=== PATIENT | female | born 1975 | race Caucasian/White ===

== ENCOUNTER 2021-03-21 19:13 | Emergency (ER) | payer MEDICARE ==
--- NOTE | 2021-03-21 19:43 | ERPHSYRPT ---
- History of Present Illness Time Seen by Provider: 03/21/21 19:42 Historian: patient Exam Limitations: no limitations Physician History: This is a 46-year-old morbidly obese white female who has known chronic recurrent pancreatitis and enlarged liver with associated elevated liver enzymes who presents with 1 month history of generalized abdominal pain and distention. She underwent a liver ultrasound on 03/06/2021 which showed hepatomegaly with no ascites and no masses. The remainder of the liver ultrasound was negative. Patient sees a rayon coner, Dr. Calderón, out of [facility]. However, she is scheduled to see a new rayon coner in [place] on 04/10/2021. What brought the patient into the emergency room today was worsening right flank and right lower quadrant abdominal pain. She has had no vomiting and no diarrhea. Patient does have [place] pain medicine at home but did not take any. She states she also has associated dysuria. Timing/Duration: yesterday Quality: burning (Burning with urination), sharpness (Right flank) Abdominal Pain Onset Location: RLQ, flank (Right) Pain Radiation: RLQ, flank (Flank) Severity of Pain-Max: moderate Severity of Pain-Current: moderate Modifying Factors: Improves With: nothing Previous symptoms: no prior history Allergies/Adverse Reactions: lamotrigine [From Lamictal] Allergy (Verified 03/21/21 19:29) Sulfa (Sulfonamide Antibiotics) Allergy (Verified 03/21/21 19:29) sulfamethoxazole [From Bactrim] Allergy (Verified 03/21/21 19:29) trimethoprim [From Bactrim] Allergy (Verified 03/21/21 19:29) Travel Risk - International Travel Have you traveled outside of the country in past 3 weeks: No - Coronavirus Screening Are you exhibiting any of the following symptoms?: No Close contact with a COVID-19 positive Pt in past 14-21 Days: No - Review of Systems Constitutional: No Symptoms Eyes: No Symptoms Ears, Nose, & Throat: No Symptoms Respiratory: No Symptoms Cardiac: No Symptoms Abdominal/Gastrointestinal: Abdominal Pain (Right lower quadrant) Genitourinary Symptoms: Dysuria, Flank Pain (Right) Musculoskeletal: No Symptoms Skin: No Symptoms Neurological: No Symptoms Psychological: No Symptoms Endocrine: No Symptoms Hematologic/Lymphatic: No Symptoms Immunological/Allergic: No Symptoms All Other Systems: Reviewed and Negative - Past Medical History Pertinent Past Medical History: Yes - Past Surgical History Past Surgical History: Yes - Nursing Vital Signs Nursing Vital Signs: Initial Vital Signs Temperature 98.5 F 03/21/21 19:31 Pulse Rate 94 H 03/21/21 19:31 Respiratory Rate 22 03/21/21 19:31 Blood Pressure 141/85 03/21/21 19:31 O2 Sat by Pulse Oximetry 98 03/21/21 19:31 Pain Scale Pain Intensity 6 - Physical Exam General Appearance: mild distress, alert, anxiety, obese Eye Exam: PERRL/EOMI, eyes nml inspection Ears, Nose, Throat Exam: normal ENT inspection, moist mucous membranes Neck Exam: normal inspection, non-tender, supple, full range of motion Respiratory Exam: normal breath sounds, lungs clear, airway intact, No chest tenderness, No respiratory distress Cardiovascular Exam: regular rate/rhythm, normal heart sounds, normal peripheral pulses Gastrointestinal/Abdomen Exam: soft, normal bowel sounds, tenderness (Localized right lower quadrant), guarding (Right lower quadrant to palpation) Pelvic Exam: not done Rectal Exam: not done Back Exam: normal inspection, normal range of motion, CVA tenderness (Right side), No vertebral tenderness Extremity Exam: normal inspection, normal range of motion, pelvis stable Neurologic Exam: alert, oriented x 3, cooperative, apparel designer II-XII nml as tested, normal mood/affect, nml cerebellar function, nml station & gait, sensation nml Skin Exam: normal color, warm, dry Lymphatic Exam: No adenopathy SpO2 Interpretation: normal O2 Delivery: Room Air - Course Nursing assessment & vital signs reviewed: Yes Ordered Tests: Active Orders 24 hr Category Date Time Status IV Insertion STAT Care 03/21/21 19:46 Active ABDOMEN AND PELVIS W/0 CONTRAS [CT] Stat Exams 03/21/21 19:47 Taken AMYLASE Stat Lab 03/21/21 19:52 Completed CBC W DIFF Stat Lab 03/21/21 19:52 Completed CMP Stat Lab 03/21/21 19:52 Completed CULTURE,URINE Stat Lab 03/21/21 19:52 Received LIPASE Stat Lab 03/21/21 19:52 Completed Lactic Acid Stat Lab 03/21/21 19:46 Completed UA W/RFX UR CULTURE Stat Lab 03/21/21 19:52 Completed Medication Summary Discontinued Medications Generic Name Dose Route Start Last Admin Trade Name Freq PRN Reason Stop Dose Admin Hydromorphone HCl 1 mg 03/21/21 19:46 03/21/21 19:57 Hydromorphone 1 Mg/Ml Injection IV 03/21/21 19:47 1 mg STAT ONE Administration Hydromorphone HCl Confirm 03/21/21 19:54 Hydromorphone 1 Mg/Ml Injection Administered 03/21/21 19:55 Dose 1 mg .ROUTE .STK-MED ONE Sodium Chloride 1,000 mls @ 999 mls/hr 03/21/21 19:46 03/21/21 21:13 Sodium Chloride 0.9% 1000 Ml IV 03/21/21 20:46 Infused .Q1H1M STA Infusion Sodium Chloride Confirm 03/21/21 19:54 Sodium Chloride 0.9% 1000 Ml Administered 03/21/21 19:55 Dose 1,000 mls @ ud .ROUTE .STK-MED ONE Ceftriaxone Sodium/Dextrose 1 g in 50 mls @ 100 mls/hr 03/21/21 20:50 03/21/21 20:53 Rocephin 1 Gm-D5w 50 Ml Bag IV 03/21/21 21:19 100 mls/hr STAT STA 100 mls/hr Administration Ceftriaxone Sodium/Dextrose Confirm 03/21/21 20:52 Rocephin 1 Gm-D5w 50 Ml Bag Administered 03/21/21 20:53 Dose 1 g in 50 mls @ ud IV .STK-MED ONE Ketorolac Tromethamine 30 mg 03/21/21 19:46 03/21/21 19:56 Toradol 30 Mg Injection IV 03/21/21 19:47 30 mg STAT ONE Administration Ketorolac Tromethamine Confirm 03/21/21 19:54 Toradol 30 Mg Injection Administered 03/21/21 19:55 Dose 30 mg .ROUTE .STK-MED ONE Ondansetron HCl 4 mg 03/21/21 19:46 03/21/21 19:56 Zofran 4 Mg/2 Ml Vial IV 03/21/21 19:47 4 mg STAT ONE Administration Ondansetron HCl Confirm 03/21/21 19:54 Zofran 4 Mg/2 Ml Vial Administered 03/21/21 19:55 Dose 4 mg .ROUTE .STK-MED ONE Lab/Rad Data: Laboratory Result Diagrams 03/21/21 19:52 03/21/21 19:52 Laboratory Results 03/21/21 03/21/21 03/21/21 Range/Units 19:52 19:52 19:52 WBC 10.8 H (4.0-10.5) K/mm3 RBC 4.39 (4.1-5.4) M/mm3 Hgb 13.1 (12.0-16.0) gm/dl Hct 40.8 (35-47) % MCV 92.9 (78-100) fl MCH 29.8 (26-32) pg MCHC 32.1 (32-36) g/dl RDW 13.0 (11.5-14.0) % Plt Count 276 (150-450) K/mm3 MPV 9.5 (7.5-11.0) fl Gran % 62.3 (36.0-66.0) % Eos # (Auto) 0.12 (0-0.5) Absolute Lymphs (auto) 2.76 (1.0-4.6) Absolute Monos (auto) 1.18 (0.0-1.3) Lymphocytes % 25.6 (24.0-44.0) % Monocytes % 11.0 (0.0-12.0) % Eosinophils % 1.1 (0.00-5.0) % Basophils % 0.0 (0.0-0.4) % Absolute Granulocytes 6.71 (1.4-6.9) Basophils # 0 (0-0.4) Sodium 139 (137-145) mmol/L Potassium 4.0 (3.5-5.1) mmol/L Chloride 105 (98-107) mmol/L Carbon Dioxide 24 (22-30) mmol/L Anion Gap 13.8 (5-15) MEQ/L BUN 12 (7-17) mg/dL Creatinine 0.53 (0.52-1.04) mg/dL Estimated GFR > 60.0 ML/MIN Glucose 104 (74-106) mg/dL Lactic Acid (0.4-2.0) Calcium 9.6 (8.4-10.2) mg/dL Total Bilirubin < 0.10 L (0.2-1.3) mg/dL AST 20 (14-36) U/L ALT 15 (0-35) U/L Alkaline Phosphatase 55 (38-126) U/L Serum Total Protein 7.4 (6.3-8.2) g/dL Albumin 4.1 (3.5-5.0) g/dL Amylase 78 (30-110) U/L Lipase 77 (23-300) U/L Urine Color YELLOW (YELLOW) Urine Appearance CLOUDY (CLEAR) Urine pH 8.0 (5-6) Ur Specific [place] 1.014 (1.005-1.025) Urine Protein 100 (Negative) Urine Ketones NEGATIVE (NEGATIVE) Urine Blood SMALL (0-5) Pol[place]/ul Urine Nitrite NEGATIVE (NEGATIVE) Urine Bilirubin NEGATIVE (NEGATIVE) Urine Urobilinogen NEGATIVE (0-1) mg/dL Ur Leukocyte Esterase TRACE (NEGATIVE) Urine WBC (Auto) 26-50 (0-5) /HPF Urine RBC (Auto) 26-50 (0-2) /HPF U Epithel Cells (Auto) RARE (FEW) /HPF Urine Bacteria (Auto) FEW (NEGATIVE) /HPF Urine Mucus (Auto) SLIGHT (NEGATIVE) /HPF Urine Culture Reflexed YES (NO) Urine Glucose NEGATIVE (NEGATIVE) mg/dL 03/21/21 Range/Units 19:46 WBC (4.0-10.5) K/mm3 RBC (4.1-5.4) M/mm3 Hgb (12.0-16.0) gm/dl Hct (35-47) % MCV (78-100) fl MCH (26-32) pg MCHC (32-36) g/dl RDW (11.5-14.0) % Plt Count (150-450) K/mm3 MPV (7.5-11.0) fl Gran % (36.0-66.0) % Eos # (Auto) (0-0.5) Absolute Lymphs (auto) (1.0-4.6) Absolute Monos (auto) (0.0-1.3) Lymphocytes % (24.0-44.0) % Monocytes % (0.0-12.0) % Eosinophils % (0.00-5.0) % Basophils % (0.0-0.4) % Absolute Granulocytes (1.4-6.9) Basophils # (0-0.4) Sodium (137-145) mmol/L Potassium (3.5-5.1) mmol/L Chloride (98-107) mmol/L Carbon Dioxide (22-30) mmol/L Anion Gap (5-15) MEQ/L BUN (7-17) mg/dL Creatinine (0.52-1.04) mg/dL Estimated GFR ML/MIN Glucose (74-106) mg/dL Lactic Acid 0.7 (0.4-2.0) Calcium (8.4-10.2) mg/dL Total Bilirubin (0.2-1.3) mg/dL AST (14-36) U/L ALT (0-35) U/L Alkaline Phosphatase (38-126) U/L Serum Total Protein (6.3-8.2) g/dL Albumin (3.5-5.0) g/dL Amylase (30-110) U/L Lipase (23-300) U/L Urine Color (YELLOW) Urine Appearance (CLEAR) Urine pH (5-6) Ur Specific [place] (1.005-1.025) Urine Protein (Negative) Urine Ketones (NEGATIVE) Urine Blood (0-5) Polo/ul Urine Nitrite (NEGATIVE) Urine Bilirubin (NEGATIVE) Urine Urobilinogen (0-1) mg/dL Ur Leukocyte Esterase (NEGATIVE) Urine WBC (Auto) (0-5) /HPF Urine RBC (Auto) (0-2) /HPF U Epithel Cells (Auto) (FEW) /HPF Urine Bacteria (Auto) (NEGATIVE) /HPF Urine Mucus (Auto) (NEGATIVE) /HPF Urine Culture Reflexed (NO) Urine Glucose (NEGATIVE) mg/dL - Progress Progress: improved, pain not gone completely, re-examined Progress Note: 03/21/21 21:20 CAT scan of the abdomen pelvis shows no acute intra-abdominal or intrapelvic abnormality. Counseled pt/family regarding: lab results, diagnosis, need for follow-up, rad results - Departure Departure Disposition: Home Clinical Impression: UTI (urinary tract infection) Condition: Stable Critical Care Time: No Referrals: CORINNE LEAHY [Primary Care Provider] - Additional Instructions: Drink plenty of fluids take your medication as prescribed. Follow-up with your primary care physician for further management. Prescriptions: Ciprofloxacin [Cipro 500 MG] 500 mg PO BID #14 tablet
[2021-03-21] MEDS ORDERED: Sodium Chloride 0.9% 1000 ML 1,000 ML IV STA (19:46)
[2021-03-21] MEDS ORDERED: TORAdol 30 mg Injection IV ONE (19:46)
[2021-03-21] MEDS ORDERED: Zofran 4 MG/2 ML VIAL IV ONE (19:46)
[2021-03-21] MEDS ORDERED: Hydromorphone 1 mg/ml Injection IV ONE (19:46)
[2021-03-21] MEDS ORDERED: Sodium Chloride 0.9% 1000 ML 1,000 ML ONE (19:54)
[2021-03-21] MEDS ORDERED: Hydromorphone 1 mg/ml Injection ONE (19:54)
[2021-03-21] MEDS ORDERED: TORAdol 30 mg Injection ONE (19:54)
[2021-03-21] MEDS ORDERED: Zofran 4 MG/2 ML VIAL ONE (19:54)
[2021-03-21 20:11] LABS: Absolute Neutrophil Ct (ANC) 6.71 (1.4-6.9); Basophil (Absolute #) 0 (0-0.4); Eosinophil % 1.1 % (0.00-5.0); Eosinophil (Absolute #) 0.12 (0-0.5); Hematocrit 40.8 % (35-47); Hemoglobin 13.1 gm/dl (12.0-16.0); Lymphocyte (Absolute #) 2.76 (1.0-4.6); Lymphocytes % 25.6 % (24.0-44.0); Mean Cell Volume 92.9 fl (78-100); Mean Corpuscular Hemoglobin 29.8 pg (26-32); Mean Corpuscular Hgb Concent. 32.1 g/dl (32-36); Mean Platelet Volume 9.5 fl (7.5-11.0); Monocyte (Absolute #) 1.18 (0.0-1.3); Neutrophil % 62.3 % (36.0-66.0); Platelet Count 276 K/mm3 (150-450); Red Blood Count 4.39 M/mm3 (4.1-5.4); White Blood Count 10.8 K/mm3 (4.0-10.5)
[2021-03-21 20:21] LABS: ALBUMIN 4.1 g/dL (3.5-5.0); ALKALINE PHOSPHATASE 55 U/L (38-126); AMYLASE 78 U/L (30-110); ANION GAP 13.8 MEQ/L (5-15); Appearance CLOUDY (CLEAR); BILIRUBIN,TOTAL < 0.10 mg/dL (0.2-1.3); BLOOD UREA NITROGEN 12 mg/dL (7-17); Bacteria FEW /HPF (NEGATIVE); Bilirubin NEGATIVE (NEGATIVE); Blood SMALL Ery/ul (0-5); CHLORIDE 105 mmol/L (98-107); Calcium 9.6 mg/dL (8.4-10.2); Carbon Dioxide 24 mmol/L (22-30); Creatinine 1 0.53 mg/dL (0.52-1.04); EST GLOMERULAR FILTRATION RATE > 60.0 ML/MIN; Epithelial Cells RARE /HPF (FEW); Glucose 104 mg/dL (74-106); Glucose NEGATIVE (NEGATIVE); Ketones NEGATIVE (NEGATIVE); LIPASE 77 U/L (23-300); Leukocyte Esterase TRACE (NEGATIVE); Mucus SLIGHT /HPF (NEGATIVE); Nitrite NEGATIVE (NEGATIVE); Protein,Urine Dip 100 (Negative); RBC 26-50 /HPF (0-2); SGOT/AST 20 U/L (14-36); SGPT/ALT 15 U/L (0-35); SODIUM 139 mmol/L (137-145); Specific Gravity 1.014 (1.005-1.025); Total Protein 7.4 g/dL (6.3-8.2); Urobilinogen NEGATIVE mg/dL (0-1); WBC 26-50 /HPF (0-5)
[2021-03-21] MEDS ORDERED: ROCEPHIN 1 Gm-D5w 50 ml Bag** 1 G/50 ML IVPB IV STA (20:50)
[2021-03-21] MEDS ORDERED: ROCEPHIN 1 Gm-D5w 50 ml Bag** 1 G/50 ML IVPB IV ONE (20:52)
[2021-03-21 21:22] VITALS: BP 120/74; PULSE 80; O2SAT 96
--- NOTE | 2021-03-22 07:50 | XRAY ---
Indication: Right flank and low back pain 2 days. Chronic pancreatitis. Multiple contiguous axial images obtained through the abdomen and pelvis without contrast. Comparison: None Lung bases are clear. Heart not enlarged. Noncontrasted stomach and bowel loops appear nonobstructed. Normal appendix. Mild scattered colonic fecal debris throughout. Previous cholecystectomy and hysterectomy. No free fluid/air. Mild fatty hepatomegaly measuring 22.5 cm. Remaining liver, pancreas, spleen, adrenal glands, kidneys, ureters, and bladder are unremarkable for noncontrast exam. Mild scattered aortoiliac calcifications without AAA. Osseous structures intact. No ventral or inguinal hernias. Impression: 1. Mild fecal stasis and fatty hepatomegaly. 2. Remaining CT abdomen/pelvis without contrast exam is negative. Comment: Preliminary interpretation made by [facility]. No critical discrepancy.
== END 2021-03-21 21:30 | disposition home or self-care (01) ==
LOC: ED 19:13
DX: N39.0 Urinary tract infection, site not specified (principal)
CPT/HCPCS: 36000; 36415; 74176; 80053; 81001; 82150; 83605; 83690; 85025; 87077; 87086; 87186; 96374; 96375; 99284; J0696; J1170; J1885; J2405

== ENCOUNTER 2022-03-01 20:27 | Emergency (ER) | payer MEDICARE ==
--- NOTE | 2022-03-01 21:03 | ERPHSYRPT ---
- History of Present Illness Time Seen by Provider: 03/01/22 20:35 Source: patient Exam Limitations: no limitations Patient Subjective Stated Complaint: pt arrived in er stating that she has a pain in left foot that along bottom of foot , states she has a knot in her foot and rates pain at 7/10, denies hurting foot, but states she was walking a lot today. Pt noticed a sore lump on bottom of foot on outer aspect of her arch. Triage Nursing Assessment: pt is alert and oriented, limping while walking, favoring left side. Physician History: Patient is a 46-year-old female presents to our ED for evaluation of left foot pain. Patient observed the pain today. Pain is at the plantar aspect closer to the forefoot. Patient feels a palpable nodule that she says is particularly tender. No trauma. No fever. Pain worse upon weightbearing. Pain improved with rest. Patient denies a history of the same. Patient is diabetic. Pain rated 7 out of 10 however patient declined pain medication. Pain only occurs upon weightbearing. Pain improves with rest. Patient voices no other complaints or concerns at this time. Portions of this note were created with voice recognition technology. There may be grammatical, spelling, punctuation or sound alike errors Method of Injury: unknown Occurred: just prior to arrival Quality: throbbing Severity of Pain-Max: moderate Severity of Pain-Current: mild Lower Extremities Pain: foot: left Modifying Factors: Improves With: other (Weightbearing) Associated Symptoms: none Allergies/Adverse Reactions: lamotrigine [From Lamictal] Allergy (Verified 03/01/22 20:43) Sulfa (Sulfonamide Antibiotics) Allergy (Verified 03/01/22 20:43) sulfamethoxazole [From Bactrim] Allergy (Verified 03/01/22 20:43) trimethoprim [From Bactrim] Allergy (Verified 03/01/22 20:43) Hx Tetanus, Diphtheria Vaccination/Date Given: Yes Hx Influenza Vaccination/Date Given: Yes Hx Pneumococcal Vaccination/Date Given: Yes Travel Risk - International Travel Have you traveled outside of the country in past 3 weeks: No - Coronavirus Screening Are you exhibiting any of the following symptoms?: No Close contact with a COVID-19 positive Pt in past 14-21 Days: No - Vaccine Status Have you recieved a Covid-19 vaccination: Yes [employer] 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 - Vaccination Dates Date of 2cond Vaccination (if applicable): 11/21/20 - Review of Systems Constitutional: No Symptoms, No Fever, No Chills Eyes: No Symptoms Ears, Nose, & Throat: No Symptoms Respiratory: No Symptoms, No Cough, No Dyspnea Cardiac: No Symptoms, No Chest Pain, No Edema, No Syncope Abdominal/Gastrointestinal: No Symptoms, No Abdominal Pain, No Nausea, No Vomiting, No Diarrhea Genitourinary Symptoms: No Symptoms, No Dysuria Musculoskeletal: No Symptoms, No Back Pain, No Neck Pain Skin: No Symptoms, No Rash Neurological: No Symptoms, No Dizziness, No Focal Weakness, No Sensory Changes Psychological: No Symptoms Endocrine: No Symptoms Hematologic/Lymphatic: No Symptoms Immunological/Allergic: No Symptoms All Other Systems: Reviewed and Negative - Past Medical History Pertinent Past Medical History: Yes Neurological History: No Pertinent History ENT History: Cataracts Cardiac History: No Pertinent History Respiratory History: COPD Endocrine Medical History: Diabetes Type II Musculoskeletal History: No Pertinent History GI Medical History: Crohns Disease, Pancreatitis History: No Pertinent History Psycho-Social History: Bipolar Female Reproductive Disorders: No Pertinent History Other Medical History: enlarge liver - Past Surgical History Past Surgical History: Yes Neuro Surgical History: No Pertinent History Cardiac: No Pertinent History Respiratory: No Pertinent History Gastrointestinal: Cholecystectomy, Other Genitourinary: No Pertinent History Musculoskeletal: No Pertinent History Female Surgical History: Hysterectomy, Dilation & Curettage, Section - Social History Smoking Status: Current every day smoker Exposure to second hand smoke: Yes Drug Use: none Patient Lives Alone: No - Female History Hx Last Menstrual Period: hysterectomy in 2019 Hx Now: No - Nursing Vital Signs Nursing Vital Signs: Initial Vital Signs Temperature 97.5 F 03/01/22 20:29 Pulse Rate 102 H 03/01/22 20:29 Respiratory Rate 18 03/01/22 20:29 Blood Pressure 137/83 03/01/22 20:29 O2 Sat by Pulse Oximetry 100 03/01/22 20:29 Pain Scale Pain Intensity 7 - Physical Exam General Appearance: no apparent distress, alert Eyes, Ears, Nose, Throat Exam: normal ENT inspection, TMs normal, pharynx normal, moist mucous membranes Neck Exam: normal inspection, non-tender, supple, full range of motion Cardiovascular/Respiratory Exam: chest non-tender, normal breath sounds, regular rate/rhythm, no respiratory distress Gastrointestinal/Abdominal Exam: non-tender, guarding Back Exam: normal inspection, No vertebral tenderness Hips Exam: bilateral: non-tender, normal inspection, normal range of motion, no evidence of injury Legs Exam: bilateral leg: non-tender, normal inspection, normal range of motion, no evidence of injury Knees Exam: bilateral knee: non-tender, normal inspection, normal range of motion, no evidence of injury Ankle Exam: bilateral ankle: non-tender, normal inspection, normal range of motion, no evidence of injury Foot Exam: right foot: non-tender, normal inspection, normal range of motion, no evidence of injury, left foot: soft tissue tenderness (Tenderness to palpation at the dorsal plantar aspect of the left forefoot. There is a palpable nodule that is particularly tender. No swelling), bilateral foot: other (Bilateral lower extremities are neurovascular tact distally. Compartments are soft. Cap refill less than 2 seconds. Homans' sign negative. PT DP pulse palpable.) Neuro/Tendon Exam: normal sensation, normal motor functions Mental Status Exam: alert, oriented x 3, cooperative Skin Exam: normal color, warm, dry SpO2 Interpretation: normal SpO2: 100 O2 Delivery: Room Air - Course Nursing assessment & vital signs reviewed: Yes - Radiology Exams Foot X-ray Interpretation: Interpreted by me (No fractures dislocations. No soft tissue abnormalities. Mild degenerative changes. Pes planus) Ordered Tests: Active Orders 24 hr Category Date Time Status FOOT (MINIMUM 3 VIEWS) Stat Exams 03/01/22 20:53 Taken - Progress Progress: improved Progress Note: Patient reassessed. She is comfortable. Patient declined pain medication. Patient only experiences pain upon weightbearing. Patient given bilateral axillary crutches. A referral to orthopedic clinic was provided. Patient agrees to follow-up orthopedic clinic tomorrow. She voices no other complaints or concerns at this time. Portions of this note were created with voice recognition technology. There may be grammatical, spelling, punctuation or sound alike errors 03/01/22 21:00 Counseled pt/family regarding: diagnosis, need for follow-up, rad results - Departure Departure Disposition: Observation Clinical Impression: Plantar fasciitis of left foot, Foot pain, left Condition: Stable Critical Care Time: No Referrals: CORINNE LEAHY NP [Primary Care Provider] - Follow up/PCP as directed Additional Instructions: Discharge/Care Plan JILL HILL was seen on 03/01/22 in the Emergency Room. The patient was counseled regarding Diagnosis,Lab results, Imaging studies, need for follow up and when to return to the Emergency Room. Prescriptions given: Discharge Note I have spoken with the patient and/or caregivers. I have explained the patient's condition, diagnosis and treatment plan based on the information available to me at this time. I have answered the patient's and/or caregiver's questions and addressed any concerns. The patient and/or caregivers have as good understanding of the patient's diagnosis, condition and treatment plan as can be expected at this point. The vital signs have been stable. The patient's condition is stable and appropriate for discharge from the emergency department. The patient will pursue further outpatient evaluation with the primary care physician or other designated or consulting physician as outlined in the discharge instructions. The patient and/or caregivers are agreeable to this plan of care and follow-up instructions have been explained in detail. The patient and/or caregivers have received these instruction. The patient/and or caregivers are aware that any significant change in condition or worsening of symptoms should prompt an immediate return to this or the closest emergency department or call 911. Outpatient Orders: Ortho Referral Time Frame: 1 Day, Facility: [facility], Location: [facility]
[2022-03-01 21:34] VITALS: BP 137/74; PULSE 83; O2SAT 98
--- NOTE | 2022-03-02 08:44 | XRAY ---
Indication: Pain. No known injury. Comparison: None 3 nonweightbearing views left foot demonstrates mild 1st tarsometatarsal degenerative changes and tiny spurring posterior calcaneus/distal anterior tibia. No other bony, articular, or soft tissue abnormalities.
== END 2022-03-01 21:40 | disposition home or self-care (01) ==
LOC: ED 20:27
DX: M72.2 Plantar fascial fibromatosis (principal); M79.672 Pain in left foot; E11.9 Type 2 diabetes mellitus without complications; J44.9 Chronic obstructive pulmonary disease, unspecified; Z72.0 Tobacco use
CPT/HCPCS: 73630; 99282

== ENCOUNTER 2022-09-12 17:57 | Emergency (ER) | payer MEDICARE ==
--- NOTE | 2022-09-12 18:20 | ERPHSYRPT ---
- History of Present Illness Source: patient Exam Limitations: no limitations Patient Subjective Stated Complaint: PT HERE FOR SOB FOR ABOUT A WEEK NOW WITH A COUGH, NO FEVER, SHE STATES THAT SHE HAS ALSO HAS HAD SWELLING TO HANDS AND FEET AND HAVING SOME RIGHT SIDED ABD PAIN, HER DR PLACED HER OF FLAGYL Triage Nursing Assessment: PT ALERT, RESP EASY, WALKED IN, FACE MASK IN PLACE, CHEST CLEAR, NO SWELLING NOTED, ABD SOFT. SKIN W/D/P Timing/Duration: day(s) Severity: mild Associated Symptoms: abdominal pain, cough Hx Tetanus, Diphtheria Vaccination/Date Given: Yes Hx Influenza Vaccination/Date Given: Yes Hx Pneumococcal Vaccination/Date Given: Yes Immunizations Up to Date: Yes <CHUYITA MOSELEY - Last Filed: 09/12/22 18:46> <MILO LAMBERT - Last Filed: 09/12/22 21:00> - History of Present Illness Time Seen by Provider: 09/12/22 18:17 Physician History: Patient is 47-year-old female with significant past medical history of hepatomegaly started having a cough some shortness of breath and abdominal distention for 1 to 2 days. Patient has a history of chronic pancreatitis and for which patient has seen her privacy attorney who started her on Flagyl and was referred to [facility] for further work-up. In the emergency room she states that she has a COPD and that is why she has some cough she denies any fever chills nausea or vomiting. She is complaining of abdominal distention as well as some weight gain in the last few days. (PRADIPCHUYITA) Allergies/Adverse Reactions: lamotrigine [From Lamictal] Allergy (Verified 03/01/22 20:43) Sulfa (Sulfonamide Antibiotics) Allergy (Verified 03/01/22 20:43) sulfamethoxazole [From Bactrim] Allergy (Verified 03/01/22 20:43) trimethoprim [From Bactrim] Allergy (Verified 03/01/22 20:43) Travel Risk - International Travel Have you traveled outside of the country in past 3 weeks: No - Coronavirus Screening Are you exhibiting any of the following symptoms?: Yes Symptoms: Cough: New Onset, Shortness of Breath - Vaccine Status Have you recieved a Covid-19 vaccination: Yes [employer] Director: Moderna - Vaccination Dates Date of 2cond Vaccination (if applicable): 11/21/20 <PRADIP - Last Filed: 09/12/22 18:46> - Review of Systems Constitutional: No Fever, No Chills Eyes: No Symptoms Ears, Nose, & Throat: No Symptoms Respiratory: Cough, No Dyspnea Cardiac: No Chest Pain, No Edema, No Syncope Abdominal/Gastrointestinal: No Abdominal Pain, No Nausea, No Vomiting, No Diarrhea Genitourinary Symptoms: No Dysuria Musculoskeletal: No Back Pain, No Neck Pain Skin: No Rash Neurological: No Dizziness, No Focal Weakness, No Sensory Changes Psychological: No Symptoms Endocrine: No Symptoms All Other Systems: Reviewed and Negative <PRDAIP, - Filed: 09/12/22 18:46> - Past Medical History Pertinent Past Medical History: Yes Neurological History: No Pertinent History ENT History: Cataracts Cardiac History: No Pertinent History Respiratory History: COPD Endocrine Medical History: Diabetes Type II Musculoskeletal History: No Pertinent History GI Medical History: Crohns Disease, Pancreatitis History: No Pertinent History Psycho-Social History: Bipolar Female Reproductive Disorders: No Pertinent History Other Medical History: enlarge liver - Past Surgical History Past Surgical History: Yes Neuro Surgical History: No Pertinent History Cardiac: No Pertinent History Respiratory: No Pertinent History Gastrointestinal: Cholecystectomy, Other Genitourinary: No Pertinent History Musculoskeletal: No Pertinent History Female Surgical History: Hysterectomy, Dilation & Curettage, Section - Social History Smoking Status: Current every day smoker Exposure to second hand smoke: Yes Drug Use: none Patient Lives Alone: Yes - Female History Hx Last Menstrual Period: 15 YEARS AGO Hx Now: No <PRADIP - Last Filed: 09/12/22 18:46> - Physical Exam General Appearance: mild distress, alert Eye Exam: PERRL/EOMI, eyes nml inspection Ears, Nose, Throat Exam: normal ENT inspection, TMs normal, pharynx normal, m oist mucous membranes Neck Exam: normal inspection, non-tender, supple, full range of motion Respiratory Exam: diminished breath sounds, No respiratory distress Cardiovascular Exam: regular rate/rhythm, normal heart sounds, normal peripheral pulses Gastrointestinal/Abdomen Exam: soft, normal bowel sounds, distention, No tenderness, No mass Back Exam: normal inspection, normal range of motion, No CVA tenderness, No vertebral tenderness Extremity Exam: normal inspection, normal range of motion, pelvis stable Neurologic Exam: alert, oriented x 3, cooperative, normal mood/affect, nml cerebellar function, nml station & gait, sensation nml, No motor deficits Skin Exam: normal color, warm, dry, No rash Lymphatic Exam: No adenopathy SpO2: 97 <PRADIP - Last Filed: 09/12/22 18:46> - Nursing Vital Signs Nursing Vital Signs: Initial Vital Signs Temperature 97.4 F 09/12/22 18:14 Pulse Rate 97 H 09/12/22 18:14 Respiratory Rate 18 09/12/22 18:14 Blood Pressure 114/98 09/12/22 18:14 O2 Sat by Pulse Oximetry 98 09/12/22 18:14 Pain Scale Pain Intensity 6 - Course Nursing assessment & vital signs reviewed: Yes EKG Interpreted by Me: Sinus Rhythm - Radiology Exams Chest X-ray Interpretation: Reviewed by me <PRADIP - Last Filed: 09/12/22 18:46> Ordered Tests: Active Orders 24 hr Category Date Time Status EKG-ER Only STAT Care 09/12/22 19:23 Active ABDOMEN AND PELVIS W CONTRAST [CT] Stat Exams 09/12/22 19:22 Taken CHEST 2 VIEWS (PA AND LAT) Stat Exams 09/12/22 18:31 Taken CHEST WITH CONTRAST [CT] Stat Exams 09/12/22 19:22 Taken AMYLASE Stat Lab 09/12/22 18:26 Completed CBC W DIFF Stat Lab 09/12/22 18:26 Completed CMP Stat Lab 09/12/22 18:26 Completed LIPASE Stat Lab 09/12/22 18:26 Completed TROPONIN Q4H Lab 09/12/22 19:00 Completed TROPONIN Q4H Lab 09/12/22 23:30 Ordered Medication Summary Discontinued Medications Generic Name Dose Route Start Last Admin Trade Name Freq PRN Reason Stop Dose Admin Apixaban 10 mg 09/12/22 20:40 Apixaban 2.5 Mg Tablet PO 09/12/22 20:41 ONCE STA Lab/Rad Data: Laboratory Result Diagrams 09/12/22 18:26 09/12/22 18:26 Laboratory Results 09/12/22 09/12/22 09/12/22 Range/Units 19:00 18:26 18:26 WBC 7.4 (4.0-10.5) x10^3/uL RBC 4.49 (4.1-5.4) x10^6/uL Hgb 13.5 (12.0-16.0) g/dL Hct 40.9 (35-47) % MCV 91.1 (78-100) fL MCH 30.1 (26-32) pg MCHC 33.0 (32-36) g/dL RDW 12.8 (11.5-14.0) % Plt Count 290 (150-450) x10^3/uL MPV 9.8 (7.5-11.0) fL Gran % 49.3 (36.0-66.0) % Immature Gran % (Auto) 0.9 H (0.00-0.4) % Nucleat RBC Rel Count 0.0 (0.00-0.1) % Eos # (Auto) 0.12 (0-0.5) x10^3/uL Immature Gran # (Auto) 0.07 H (0.00-0.03) x10^3u/L Absolute Lymphs (auto) 2.74 (1.0-4.6) x10^3/uL Absolute Monos (auto) 0.81 (0.0-1.3) x10^3/uL Absolute Nucleated RBC 0.00 (0.00-0.01) x10^3u/L Lymphocytes % 37.1 (24.0-44.0) % Monocytes % 11.0 (0.0-12.0) % Eosinophils % 1.6 (0.00-5.0) % Basophils % 0.1 (0.0-0.4) % Absolute Granulocytes 3.64 (1.4-6.9) x10^3/uL Basophils # 0.01 (0-0.4) x10^3/uL Sodium 137 (137-145) mmol/L Potassium 4.2 (3.5-5.1) mmol/L Chloride 106 (98-107) mmol/L Carbon Dioxide 26 (22-30) mmol/L Anion Gap 9.4 (5-15) MEQ/L BUN 13 (7-17) mg/dL Creatinine 0.62 (0.52-1.04) mg/dL Estimated GFR > 60.0 ML/MIN Glucose 131 H (74-106) mg/dL Calcium 9.0 (8.4-10.2) mg/dL Total Bilirubin 0.30 (0.2-1.3) mg/dL AST 38 H (14-36) U/L ALT 46 H (0-35) U/L Alkaline Phosphatase 91 (38-126) U/L Troponin I < 0.012 (0.000-0.034) ng/mL Serum Total Protein 7.6 (6.3-8.2) g/dL Albumin 4.1 (3.5-5.0) g/dL Amylase 93 (30-110) U/L Lipase 119 (23-300) U/L - Progress Progress: improved Counseled pt/family regarding: lab results, diagnosis, need for follow-up, rad results <MILO LAMBERT - Last Filed: 09/12/22 21:00> - Progress Progress Note: 09/12/22 20:56 Differential diagnosis includes STEMI, infection, pneumonia, pulmonary embolism. Plan for basic labs, EKG, chest x-ray clear. CT scan obtained. CT scan shows bilateral pulmonary embolism. Patient has no evidence of right heart strain. Patient has no elevation of troponin. EKG shows sinus rhythm without ST changes. CT scan shows no right heart strain either. Given all of this I do believe patient would be a good candidate for oral anticoagulation, 99% on room air. We will give first dose of Eliquis here tonight. Otherwise she will need to take Eliquis at home. Prescription sent in for the patient. She will need to call her PCP tomorrow for close follow-up. I did go over strict return precautions. She may return here at any point time for new or changing pain symptoms. She states understanding will follow-up. Return here as needed. (MILO LAMBERT) <CHUYITA MOSELEY - Last Filed: 09/12/22 18:46> - Departure Departure Disposition: Home Critical Care Time: No <MILO LAMBERT - Last Filed: 09/12/22 21:00> - Departure Clinical Impression: Pulmonary emboli Condition: Stable Referrals: CORINNE LEAHY NP [Primary Care Provider] - Follow up/PCP as directed Instructions: Pulmonary Embolism (Blood Clot in the Lungs) (DC) Prescriptions: Apixaban [Eliquis 5 mg Tablet] 10 mg PO BID #70 tablet
[2022-09-12 18:29] LABS: Absolute Neutrophil Ct (ANC) 3.64 x10^3/uL (1.4-6.9); BASOPHIL % 0.1 % (0.0-0.4); Basophil (Absolute #) 0.01 x10^3/uL (0-0.4); Eosinophil % 1.6 % (0.00-5.0); Eosinophil (Absolute #) 0.12 x10^3/uL (0-0.5); Hematocrit 40.9 % (35-47); Hemoglobin 13.5 g/dL (12.0-16.0); IMMATURE GRAN # 0.07 x10^3u/L (0.00-0.03); IMMATURE GRAN % 0.9 % (0.00-0.4); Lymphocyte (Absolute #) 2.74 x10^3/uL (1.0-4.6); Lymphocytes % 37.1 % (24.0-44.0); Mean Cell Volume 91.1 fL (78-100); Mean Corpuscular Hemoglobin 30.1 pg (26-32); Mean Platelet Volume 9.8 fL (7.5-11.0); Monocyte (Absolute #) 0.81 x10^3/uL (0.0-1.3); Neutrophil % 49.3 % (36.0-66.0); Platelet Count 290 x10^3/uL (150-450); Red Blood Count 4.49 x10^6/uL (4.1-5.4); Red Cell Distribution Width 12.8 % (11.5-14.0); White Blood Count 7.4 x10^3/uL (4.0-10.5)
[2022-09-12 18:45] LABS: ALBUMIN 4.1 g/dL (3.5-5.0); ALKALINE PHOSPHATASE 91 U/L (38-126); AMYLASE 93 U/L (30-110); ANION GAP 9.4 MEQ/L (5-15); BLOOD UREA NITROGEN 13 mg/dL (7-17); CHLORIDE 106 mmol/L (98-107); Carbon Dioxide 26 mmol/L (22-30); Creatinine 1 0.62 mg/dL (0.52-1.04); EST GLOMERULAR FILTRATION RATE > 60.0 ML/MIN; Glucose 131 mg/dL (74-106); LIPASE 119 U/L (23-300); Potassium 4.2 mmol/L (3.5-5.1); SGOT/AST 38 U/L (14-36); SGPT/ALT 46 U/L (0-35); SODIUM 137 mmol/L (137-145); Total Protein 7.6 g/dL (6.3-8.2)
[2022-09-12] MEDS ORDERED: ELIQUIS 2.5 MG TABLET PO STA (20:40)
[2022-09-12 21:24] VITALS: BP 123/73; PULSE 88; O2SAT 96
--- NOTE | 2022-09-13 08:50 | XRAY ---
Indication: Short of breath, bloating, COPD, and nausea. History pancreatitis. Multiple contiguous axial images obtained through the chest using 100 cc Isovue 370 contrast and PE protocol. Comparison: July 16, 2020 Suboptimal opacification of the pulmonary arteries limits evaluation for pulmonary embolus. No obvious pulmonary embolus. Heart not enlarged. Aorta is normal in course and caliber. No pathologic mediastinal/hilar lymphadenopathy. Lungs hyperinflated and remain clear. Bony thorax intact again with minimal degenerative changes about the spine. CT abdomen/pelvis reported separately. Impression: 1. Pulmonary embolus evaluation limited by suboptimal contrast opacification. No obvious pulmonary embolus. 2. Remaining CT chest with contrast exam is negative. Comment: Preliminary interpretation made by [facility] who reports bilateral nonocclusive pulmonary emboli which I do not appreciate.
--- NOTE | 2022-09-13 08:52 | XRAY ---
Indication: Short of breath, bloating, COPD, and nausea. History pancreatitis. Multiple contiguous axial images obtained through the abdomen and pelvis using 100 cc Isovue 370 contrast and PE protocol. Comparison: March 21, 2021 CT chest reported separately. Stomach is distended with food/fluid. Noncontrasted stomach and bowel loops appear nonobstructed with normal appendix. Again mild diffuse scattered colonic fecal debris more than before, 23 cm fatty hepatomegaly, cholecystectomy, and hysterectomy. No free fluid/air. Remaining pancreas, spleen, adrenal glands, kidneys, ureters, and bladder are unremarkable. There remains mild scattered aortoiliac calcifications. No AAA or pathologic retroperitoneal lymphadenopathy. Osseous structures intact. Impression: 1. Worsening diffuse fecal stasis with stable fatty hepatomegaly. 2. Remaining CT abdomen/pelvis with contrast exam is negative. Comment: Preliminary interpretation made by [facility]. No critical discrepancy.
--- NOTE | 2022-09-13 08:54 | XRAY ---
Indication: Short of breath. Comparison: November 12, 2021 PA/lateral chest demonstrates new left midlung subsegmental atelectasis/scarring. Remaining heart and lungs unremarkable. Bony thorax intact.
== END 2022-09-12 21:25 | disposition home or self-care (01) ==
LOC: ED 17:57
DX: I26.99 Other pulmonary embolism without acute cor pulmonale (principal); R06.02 Shortness of breath; R14.0 Abdominal distension (gaseous); E11.9 Type 2 diabetes mellitus without complications; Z72.0 Tobacco use; Z79.01 Long term (current) use of anticoagulants
CPT/HCPCS: 36000; 36415; 71046; 71260; 74177; 80053; 82150; 83690; 84484; 85025; 93005; 99284; A9270-GY

== ENCOUNTER 2023-06-09 18:44 | Emergency (ER) | payer MEDICARE ==
[2023-06-09 19:15] VITALS: TEMP 98.5
[2023-06-09] MEDS ORDERED: MORPHINE SULFATE 4 MG INJ IM ONE (20:00)
[2023-06-09] MEDS ORDERED: MORPHINE SULFATE 4 MG INJ ONE (20:09)
[2023-06-09 20:11] VITALS: RESP 18
--- NOTE | 2023-06-09 20:28 | ERPHSYRPT ---
- History of Present Illness Time Seen by Provider: 06/09/23 19:08 Historian: patient Exam Limitations: no limitations Patient Subjective Stated Complaint: pt states that she fell over her boyfriend and his knee went into her ribs when they fell Triage Nursing Assessment: pt ambulated into the er; pt is axo x4; c/o rib pain; pt is holding her left ribs and moaning; clear lung sounds in all lobes; no respiratory distress present; pt states difficulty with taking deep breaths; skin PDW; no bruising or deformity present to left ribs; tenderness to middle left ribs; vitals wnl Physician History: 48 years old female with history of hypertension, hyperlipidemia, anxiety, chronic pancreatitis presented in the ER with chief complaint of left rib pain after she accidentally fell and hit the knee of her boyfriend. Patient reports moderate to severe sharp pain for the last 6 to 7 hours, aggravated with movements, palpation and deep breathing. No difficulty breathing. No abdominal or flank pain. Patient has tenderness left anterior chest wall below the breast with no crepitus/flail segment. Lungs bilateral clear to auscultation. No midline/thoracic spine tenderness. No flank tenderness. No abdominal/epigas tric tenderness. I have obtain x-rays which are negative for acute rib fractures reviewed by me followed by Dr. Ojeda. She is given symptomatic treatment with morphine, we will give her lidocaine patches and [place] to go home and outpatient follow-up. I believe patient has contusion. Discussed signs symptoms of worsening needing return to ER which she seems understanding. Stable for discharge. Prior Chest Pain/Cardiac Workup: no prior chest pain Nitro Today/Relief: no nitro taken today Aspirin Treatment Today: no aspirin today Allergies/Adverse Reactions: adhesive tape Allergy (Verified 06/09/23 18:52) lamotrigine [From Lamictal] Allergy (Verified 06/09/23 18:49) Sulfa (Sulfonamide Antibiotics) Allergy (Verified 06/09/23 18:49) sulfamethoxazole [From Bactrim] Allergy (Verified 06/09/23 18:49) trimethoprim [From Bactrim] Allergy (Verified 06/09/23 18:49) Home Medications: Albuterol Sulfate [Albuterol Sulfate Hfa] 1 puff IH Q4HPRN PRN 06/09/23 [History] Budesonide/Glycopyr/Formoterol [Breztri Aerosphere Inhaler] 1 puff IH DAILY 06/09/23 [History] Fenofibrate,Micronized 145 mg* [Tricor 145 MG] 145 mg PO DAILY 06/09/23 [History] Lipase/Protease/Amylase [Creon Dr 24,000 Unit Capsule] 2 tab PO TID 06/09/23 [History] Meclizine HCl 25 mg [Antivert 25 mg] 25 mg PO TID PRN 06/09/23 [History] Pravastatin Sodium 40 mg PO DAILY 06/09/23 [History] Semaglutide [Ozempic] 0.25 mg SQ WEEKLY 06/09/23 [History] Valacyclovir HCl [Valacyclovir] 1 tab PO DAILY 06/09/23 [History] clonazePAM [Klonopin] 1 mg PO BID 06/09/23 [History] lisinopriL [Lisinopril] 5 mg PO DAILY 06/09/23 [History] Hx Tetanus, Diphtheria Vaccination/Date Given: No Hx Influenza Vaccination/Date Given: No Hx Pneumococcal Vaccination/Date Given: No Travel Risk - International Travel Have you traveled outside of the country in past 3 weeks: No - Coronavirus Screening Are you exhibiting any of the following symptoms?: No Close contact with a COVID-19 positive Pt in past 14-21 Days: No - Vaccine Status Have you recieved a Covid-19 vaccination: Yes [employer]: Moderna - Vaccination Dates Date of 2cond Vaccination (if applicable): 11/21/20 - Review of Systems Constitutional: No Symptoms Ears, Nose, & Throat: No Symptoms Respiratory: No Symptoms Cardiac: Chest Pain Abdominal/Gastrointestinal: No Symptoms Genitourinary Symptoms: No Symptoms Musculoskeletal: Injury Skin: No Symptoms Neurological: No Symptoms Psychological: Anxiety Hematologic/Lymphatic: No Symptoms - Past Medical History Pertinent Past Medical History: Yes Neurological History: No Pertinent History ENT History: Cataracts Cardiac History: No Pertinent History Respiratory History: COPD Endocrine Medical History: Diabetes Type II Musculoskeletal History: No Pertinent History GI Medical History: Crohns Disease, Pancreatitis History: No Pertinent History Psycho-Social History: Bipolar Female Reproductive Disorders: No Pertinent History Other Medical History: enlarge liver - Past Surgical History Past Surgical History: Yes Neuro Surgical History: No Pertinent History Cardiac: No Pertinent History Respiratory: No Pertinent History Gastrointestinal: Cholecystectomy, Other Genitourinary: No Pertinent History Musculoskeletal: No Pertinent History Female Surgical History: Hysterectomy, Dilation & Curettage, Section - Social History Smoking Status: Current every day smoker How long have you smoked: 25 Exposure to second hand smoke: Yes Drug Use: none Patient Lives Alone: No - Female History Hx Now: No - Nursing Vital Signs Nursing Vital Signs: Initial Vital Signs Temperature 98.5 F 06/09/23 18:50 Pulse Rate 100 H 06/09/23 18:50 Respiratory Rate 26 H 06/09/23 18:50 Blood Pressure 120/86 06/09/23 18:50 O2 Sat by Pulse Oximetry 94 L 06/09/23 18:50 Pain Scale Pain Intensity 7 - Physical Exam General Appearance: no apparent distress, alert Ears, Nose, Throat Exam: normal ENT inspection, TMs normal, pharynx normal, moist mucous membranes Neck Exam: normal inspection, non-tender, supple, full range of motion Respiratory Exam: normal breath sounds, chest tenderness, lungs clear Cardiovascular Exam: regular rate/rhythm, normal heart sounds, normal peripheral pulses Gastrointestinal/Abdomen Exam: soft, normal bowel sounds, No tenderness Back Exam: normal inspection, normal range of motion Extremity Exam: normal inspection, normal range of motion Neurologic Exam: alert, oriented x 3, cooperative Skin Exam: normal color SpO2 Interpretation: normal SpO2: 96 O2 Delivery: Room Air Ordered Tests: Active Orders 24 hr Category Date Time Status RIBS UNILATERAL Stat Exams 06/09/23 19:07 Taken Medication Summary Discontinued Medications Generic Name Dose Route Start Last Admin Trade Name Zachary PRN Reason Stop Dose Admin Morphine Sulfate 4 mg 06/09/23 20:00 06/09/23 20:12 Morphine Sulfate 4 Mg/Ml Injection IM 06/09/23 20:01 4 mg STAT ONE Administration Morphine Sulfate Confirm 06/09/23 20:09 Morphine Sulfate 4 Mg/Ml Injection Administered 06/09/23 20:10 Dose 4 mg .ROUTE .STK-MED ONE - Progress Progress: improved Air Movement: good Progress Note: 06/09/23 20:29 48 years old female with history of hypertension, hyperlipidemia, anxiety, chronic pancreatitis presented in the ER with chief complaint of left rib pain after she accidentally fell and hit the knee of her boyfriend. Patient reports moderate to severe sharp pain for the last 6 to 7 hours, aggravated with movements, palpation and deep breathing. No difficulty breathing. No abdominal or flank pain. Patient has tenderness left anterior chest wall below the breast with no crepitus/flail segment. Lungs bilateral clear to auscultation. No midline/thoracic spine tenderness. No flank tenderness. No abdominal/epigastric tenderness. I have obtain x-rays which are negative for acute rib fractures reviewed by me followed by Dr. Ojeda. She is given symptomatic treatment with morphine, we will give her lidocaine patches and [place] to go home and outpatient follow-up. I believe patient has contusion. Discussed signs symptoms of worsening needing return to ER which she seems understanding. Stable for discharge. Blood Culture(s) Obtained: No Antibiotics given: No Counseled pt/family regarding: diagnosis, need for follow-up, rad results Medical Desision Making - Diagnostic Testing Diagnostic test were ordered, analyzed, and reviewed by me: Yes Radiological Interpretation: Interpreted by me, Reviewed by me - Risk of complications The pt has a mod risk of morbidity or mortality based on: Need for prescription drug management - Departure Departure Disposition: Home Clinical Impression: Chest wall contusion Condition: Stable Critical Care Time: No Referrals: CORINNE LEAHY NP [Primary Care Provider] - Follow up with PCP 1 day Instructions: Bruised Rib Additional Instructions: Take pain medications as needed. Follow-up with primary care for reevaluation. Do deep breathing exercises. Return to ER for intractable pain or if having difficulty breathing etc. Prescriptions: Hydrocodone/Acetaminophen [Hydrocodone-Acetamin 7.5-325] 1 each PO Q6HPRN PRN 3 Days #12 tablet MDD 4 PRN Reason: Pain Lidocaine HCl 5% Patch [Lidoderm Patch 5%] 1 patch TP DAILY 12 Days #12 patch
[2023-06-09 20:36] VITALS: BP 114/82; PULSE 94; O2SAT 97
--- NOTE | 2023-06-10 08:38 | XRAY ---
Indication: Pain following fall. Comparison: None 2 view left ribs demonstrates osteopenia, minimal double curvature thoracolumbar scoliosis, and cholecystectomy clips. No other bony, articular, or soft tissue abnormalities.
== END 2023-06-09 20:41 | disposition home or self-care (01) ==
LOC: ED 18:44
DX: S20.212A Contusion of left front wall of thorax, initial encounter (principal); W03.XXXA Other fall on same level due to collision with another person, initial encounter; E11.9 Type 2 diabetes mellitus without complications; Z79.891 Long term (current) use of opiate analgesic; Z79.85 Long-term (current) use of injectable non-insulin antidiabetic drugs; Z79.899 Other long term (current) drug therapy; Z72.0 Tobacco use
CPT/HCPCS: 71100; 96372; 99283; J2270